=== PATIENT | male | born 1955 | race Caucasian/White ===

== ENCOUNTER 2022-05-12 08:51 | Outpatient (CLI) | payer MEDICARE, SELFPAY ==
--- NOTE | ~2022-05-12 | XR_ITS ---
XR UGIAC w barium swallow DATE: 05/12/2022 09:59 INDICATION: Loss of appetite. Anorexia. Lower abdominal pain. TECHNIQUE: Air-contrast upper gastrointestinal series 3.8 minutes fluoroscopy time; 150 images 85.187 Gycm2 COMPARISON: None FINDINGS: There is abnormal impression upon the posterior lower cervical esophagus by the cricopharyn geus muscle consistent with cricopharyngeus muscle dysfunction. There is a small reducible sliding hiatal hernia. There is a small ulcer with radiating mucosal folds and edema at the post bulbar area of the duodenum . Otherwise no stricture, mucosal fold thickening, erosion, ulceration or intraluminal mass lesion of t he esophagus, stomach or duodenum is noted. 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 Small post bulbar duodenal ulcer Reviewed, dictated and finalized at [facility]. Reviewed, dictated and finalized at [facility].
== END 2022-05-12 08:52 | disposition home or self-care (01) ==
LOC: ANHIMG 08:53
PROVIDERS: PCP Internal Medicine; Visit Provider Internal Medicine
DX: R63.0 Anorexia (principal); K44.9 Diaphragmatic hernia without obstruction or gangrene; K26.9 Duodenal ulcer, unspecified as acute or chronic, without hemorrhage or perforation
CPT/HCPCS: 74246

== ENCOUNTER 2022-05-24 10:49 | Outpatient (CLI) | payer MEDICARE, SELFPAY ==
--- NOTE | ~2022-05-24 | XR_ITS ---
EXAMINATION: XR barium swallow modified DATE: 05/24/2022 11:26 INDICATION: Dysphagia. TECHNIQUE: The patient was given barium-containing material of multiple consistencies to swallow by sugar aguilar speech pathologist while I performed fluoroscopy. Dose-area product was 85.187 Gy-cm2. 3.8 minutes fluoroscopy time FINDINGS: Oral Stage: Within functional limits Pharyngeal Phase: Mild laryngeal penetration with thin liquid; no aspiration Cervical/Esophageal Stage: Within functional limits IMPRESSION: Modified esophagram findings as above. Please refer to the speech therapy report for spec [facility] recommendations. Reviewed, dictated and finalized at [facility]. Reviewed, dictated and finalized at [facility]. ATURE TRAIN DRIVER IMPRESSION: Modified esophagram findings as above. Please refer to the speech t herapy report for specific recommendations.
--- NOTE | 2022-05-24 11:39 | REHSTMBS ---
Assessment and note entered by Sue Sutherland, ORDER DEPARTMENT SUPERVISOR Modified Barium Swallow Evaluation Feeding Type Recommended Oral Food Consistency Regular, Level 7 Liquid Consistency Thin (0) ST Clinical Summary MODIFIED BARIUM SWALLOW STUDY (MBSS) This patient was seen for a Modified Barium Swallow study at the request of his physician, Dr. Morgan. Patient reported he recently underwent an upper GI study and had difficulty swallowing the thicker liquid while in a lying position but otherwise he denied any difficulty with swallowing. Today the patient was presented with graduated amounts of thin liquid contrast medium per spoon, thin liquid per straw, and then thin liquid per cup. He was also presented with pudding mixed with contrast medium, and fruit and cracker also mixed with semi-solid contrast medium. Patient exhibit quick swallows with only minimal vallecular residue after swallowing on larger amounts. He also exhibited flash penetration on one sip out of three sips from a cup and not at all from thin liquid from a straw. There was no noticeable residue in the airway after the swallow was completed. Results indicate this patient may remain on regular diet with regular liquid consistencies. No further Speech Therapy is indicated at this time. Thank you for this referral.
== END 2022-05-24 10:50 | disposition home or self-care (01) ==
PROVIDERS: PCP Internal Medicine; Visit Provider Internal Medicine
DX: R13.10 Dysphagia, unspecified (principal)
CPT/HCPCS: 92611